=== PATIENT | male | born 1970 | race American Indian/Alaskan Native ===

== ENCOUNTER 2018-07-06 21:41 | Emergency (ER) | payer OTHER ==
--- NOTE | 2018-07-06 22:44 | XRay Report ---
PROCEDURE: XR ELBOW 3+V LT TECHNIQUE: LEFT elbow radiographs, including AP, lateral, and oblique views. HISTORY: Left elbow pain/injury COMPARISONS: None . FINDINGS: Fracture (s) and/or Dislocation(s): A small ossific density is noted along the posterior aspect of o lecranon measuring 2 mm . Alignment: Normal . Joint space(s): Normal . Soft tissues: Mild degree posterior soft tissue swelling is noted . Bone mineralization: Normal . Foreign bodies: None . IMPRESSION: Small ossific density posterior to the olecranon may represent a small avulsion fracture. This document is electronically signed by Adrián Kern MD., July 06 2018 10:42:25 PM ET
--- NOTE | 2018-07-06 23:22 | Emergency Department Report ---
ED Upper Extremity Inj HPI - General Chief Complaint: Extremity Injury, Upper Stated Complaint: LEFT ELBOW PAIN Time Seen by Provider: 07/06/18 23:16 Source: patient Mode of arrival: Ambulatory Limitations: No Limitations - History of Present Illness Initial Comments: Patient is a pleasant 47-year-old male who was at [employer] today when a glucose attacked his child. As he sprung further goose to save his child he tripped and fell hitting his elbow on the concrete. -: Sudden Place: home Context: fall Associated Symptoms: denies other symptoms - Related Data Previous Rx's Medication Instructions Recorded Last Taken Type Naproxen [Naprosyn] 500 mg PO BID PRN #20 tablet 07/06/18 Unknown Rx traMADol [Ultram] 50 mg PO Q6HR PRN #12 tablet 07/06/18 Unknown Rx Allergies Allergy/AdvReac Type Severity Reaction Status Date / Time No Known Allergies Allergy Verified 07/06/18 23:36 ED Review of Systems ROS: Stated complaint: LEFT ELBOW PAIN Other details as noted in HPI Comment: All other systems reviewed and negative Constitutional: denies: chills Eyes: denies: eye pain ENT: denies: ear pain Respiratory: denies: see HPI Cardiovascular: denies: chest pain Endocrine: denies: excessive sweating Gastrointestinal: denies: nausea Genitourinary: denies: urgency Musculoskeletal: as per HPI Skin: denies: lesions Psychiatric: denies: anxiety Hematological/Lymphatic: denies: easy bleeding ED Past Medical Hx - Past Medical History Previous Medical History?: No - Surgical History Past Surgical History?: Yes Additional Surgical History: R hand fingertip amputation - Family History Family history: no significant - Social History Smoking Status: Never Smoker Substance Use Type: None - Medications Home Medications: Home Medications Medication Instructions Recorded Confirmed Last Taken Type Naproxen [Naprosyn] 500 mg PO BID PRN #20 tablet 07/06/18 Unknown Rx traMADol [Ultram] 50 mg PO Q6HR PRN #12 tablet 07/06/18 Unknown Rx ED Physical Exam - General Limitations: No Limitations General appearance: alert - Head Head exam: Present: normocephalic - ENT ENT exam: Present: normal exam, mucous membranes moist - Neck Neck exam: Present: normal inspection - Respiratory Respiratory exam: Present: normal lung sounds bilaterally - Cardiovascular Cardiovascular Exam: Present: regular rate - GI/Abdominal GI/Abdominal exam: Present: soft - Rectal Rectal exam: Present: deferred - Expanded Upper Extremity Exam Left Elbow exam: Present: full ROM (limited by pain), tenderness, swelling, abrasion. Absent: laceration, ecchymosis, deformity, crepidus, dislocation, erythema, effusion, pain w/ pronation/supination, tenderness over radial head Forearm Wrist exam: Present: normal inspection Hand Wrist exam: Present: normal inspection Vascular: Present: normal capillary refill, radial pulse, brachial pulse, ulnar pulse ED Course Vital Signs 07/06/18 21:50 Temperature 98.0 F Pulse Rate 92 H Respiratory 18 Rate Blood Pressure 132/92 O2 Sat by Pulse 97 Oximetry ED Medical Decision Making - Radiology Data Radiology results: report reviewed, image reviewed - Medical Decision Making X-ray noted. Elbow pain is the only injury. Full range of motion but limited with pain No snuffbox tenderness, full range of motion of the shoulder and distal arm Radial and ulnar pulse intact with rapid capillary refill tdap Vital Signs 07/06/18 21:50 Temperature 98.0 F Pulse Rate 92 H Respiratory 18 Rate Blood Pressure 132/92 O2 Sat by Pulse 97 Oximetry up-to-date Wound care provided Sling to the arm. Lungs discussion with the patient about follow-up care. Critical care attestation.: If time is entered above; I have spent that time in minutes in the direct care of this critically ill patient, excluding procedure time. ED Disposition Clinical Impression: Avulsion fracture of medial epicondyle of humerus, Abrasion, elbow w/o infection, Fall Disposition: TO HOME OR SELFCARE Is pt being admited?: No Does the pt Need Aspirin: No Condition: Stable Instructions: Elbow Fracture in Adults (ED) Additional Instructions: ICE REST ELEVATE SLING DURING DAY FOLLOW UP ORTHO MD WE DISCUSSED MEDS ORDERED DIET TOLERATED ACTIVITY TOLERATED CLEAN ELBOW TWICE DAILY WITH MILD SOAP AND WATER. APPLY A NONADHESIVE DRESSING- YOU CAN GET THESE AT THE DRUG STORE THEN WRAP IN GUAZE USE ARM SLING TO IMMOBILIZE THAT ELBOW Prescriptions: Naproxen [Naprosyn] 500 mg PO BID PRN #20 tablet PRN Reason: Pain traMADol [Ultram] 50 mg PO Q6HR PRN #12 tablet PRN Reason: Pain [facility] FRANCISCO JAVIER [Primary Care Provider] - 3-5 Days KELECHI CHU MD [Staff Physician] - 3-5 Days Forms: Work/School Release Form(ED) Time of Disposition: 23:32
[2018-07-06] MEDS ORDERED: PERCOCET 5/325 PO ONE (23:29)
[2018-07-06] MEDS ORDERED: ANCEF IM ONE (23:29)
[2018-07-06] MEDS ORDERED: THERMAZENE 50 GRAM TP ONE (23:30)
[2018-07-07] MEDS ORDERED: WATER FOR INJ (PF) ONE (00:47)
[2018-07-07 01:18] VITALS: BP 132/92
== END 2018-07-07 01:19 | disposition home or self-care (01) ==
LOC: ED 21:41
DX: S42.442A Displaced fracture (avulsion) of medial epicondyle of left humerus, initial encounter for closed fracture (principal); S50.312A Abrasion of left elbow, initial encounter; W01.0XXA Fall on same level from slipping, tripping and stumbling without subsequent striking against object, initial encounter; Y93.89 Activity, other specified; Y92.009 Unspecified place in unspecified non-institutional (private) residence as the place of occurrence of the external cause; Y99.8 Other external cause status
CPT/HCPCS: 73080; 96372; 99283; J0690